=== PATIENT | male | born 1940 | race Caucasian/White ===

== ENCOUNTER 2021-10-19 10:13 | Observation (INO) ==
--- NOTE | 2021-10-16 08:30 | Anesthesiology Consultation ---
Date of Service October 16, 2021 Assessment & Plan (1) Encounter for pre-operative examination: - check BSG am DOS. - medical clearance 07/28/2021: "...preoperative clearance prior to R knee replacement...recent labs, EKG and CXR that was reviewed and the findings indicated only mild bradycardia...denies anginal CP with daily activity...low to mod risk for the procedure--recommend monitoring HR/blood glucose in the perioperative period..." - cardiology office visit 12/24/2020: "...BP acceptable, pulse low...denies CP...no SOB or MISTRY...02/2019 ECHO- EF 60-65%, AoR 3.8 cm...mild AR/TR/MR, PAP 21, DD1...01/2019 CT chest- ascending thoracic aorta 4 cm. 01/2019 Carotids- <50% bilat ICA stenosis, vertebral flow antegrade bilat...coronary artery disease-hx NSTEMI s/p CABG x 2 ([facility], [facility]) with improved CP over the past year, cont ASA, Plavix, statin, BB. Thoracic aortic aneurysm-4 cm...with mild AR, will monitor with annual echos. Bradycardia-asymptomatic, on BB, with occasional PVCs, monitor. Hypertension-appears controlled, cont current...carotid artery disease-< 50% bilat ICA stenosis, stable, monitor. Aortic regurgitation-mild, monitor. Mitral regurgitation-mild, monitor..." - Patient now booked for overnight observation. - COVID screening: Per commissioning specialist on 10/15/2021: Travel screen negative, no known COVID-19 positive contacts or current COVID-19 related symptoms in past 2 weeks. Patient vaccinated. Pre-op COVID test 10/15/21 negative. Chart Review Chart Review: Acceptable Risk for Surgery and Patient NOT seen in Pre Admission Testing History Surgery Operation Date: 10/19/21 12:30 Proposed Procedures p Right Total Knee Arthroplasty - Leland Girard MD Surgery re-scheduled since 06/2021 anesthesia review. Height/Weight Height: 5 ft 9 in Weight: 77.111 kg Allergies Allergy/AdvReac Type Severity Reaction Status Date / Time hydrocodone AdvReac Mild VOMIT Verified 10/15/21 15:17 Medications Home Medications Medication Instructions Recorded Confirmed Last Taken aspirin 81 mg tablet,delayed 81 mg PO QAM 07/02/21 10/15/21 Unknown release atorvastatin 80 mg tablet 80 mg PO HS 07/02/21 10/15/21 Unknown calcium 600 mg capsule 600 mg PO QAM 07/02/21 10/15/21 Unknown clopidogrel 75 mg tablet (Plavix) 75 mg PO QAM 07/02/21 10/15/21 Unknown gabapentin 300 mg capsule 300 mg PO HS 07/02/21 10/15/21 Unknown metoprolol succinate 50 mg 25 mg PO QAM 07/02/21 10/15/21 Unknown tablet,extended release 24 hr [id number]-vpy-nnlde acid 300 1 tab PO QAM 07/02/21 10/15/21 Unknown mcg-lycopene 600 mcg-lutein 300 mcg tablet (Centrum Silver Men) omeprazole 20 mg tablet,delayed 20 mg PO QAM 07/02/21 10/15/21 Unknown release amino acids (Amino Acid) 3 cap PO BID 10/15/21 10/15/21 Unknown Past Medical History Medical History (Updated 10/16/21 @ 09:03 by Miri Rowland PA-C) Aortic valve stenosis listed per remote records, no aortic valve stenosis diagnosis listed in cardio note 11/2020 or [facility] report 02/2019, aortic valve is noted to be thickened with mild regurgitation Bradycardia asymptomatic, on BB, monitoring per cardio CAD (coronary artery disease) NSTEMI and CABG x 2 in 2019 ([facility], [facility]), follows with Dr Brock Carotid artery disease < 50% stenosis bilat ICA, monitored by cardio GERD (gastroesophageal reflux disease) Hx of sciatica Hyperlipidemia Hypertension Inguinal hernia RT Myocardial Infarction post-op, 2019 Osteoarthritis Peripheral neuropathy tingling feet bilat Prediabetes Right knee DJD Thoracic aortic aneurysm 4 cm on [address], monitoring with annual echos per 11/2020 cardio note Past Family History Family History Other No family history of adverse response to anesthesia Past Surgical History Surgical History History of appendectomy History of cardiac cath 2019/NO STENTS History of cataract surgery RT/LEFT History of cholecystectomy History of colonoscopy History of coronary artery bypass graft X 2 VESSELS 2019 ([facility]) History of esophagogastroduodenoscopy (EGD) History of tooth extraction Social History Smoking Status: Former smoker tobacco type: cigarettes Do You Dip or Chew Tobacco: No Smoking End Date: 1978 Hx Alcohol Use: Yes Alcohol type: beer alcohol intake frequency: holidays/special occasions only substance use type: does not use Review of Systems Patient reports occasional neck pain in recent weeks, alleviated with using his 's neck collar. Denies trauma, upper extremity paresthesias or weakness. Lab Results Anesthesia Preop Results Results Anesthesia Widget: WBC 6.70 K/uL (4.8-10.8) 10/01/21 Hgb 15.0 g/dL (14.0-18.0) 10/01/21 Hct 44.3 % (42-52) 10/01/21 Plt 175 K/uL (130-400) 10/01/21 Na 140 mmol/L (136-145) 10/01/21 K 4.2 mmol/L (3.5-5.1) 10/01/21 Cl 108 mmol/L (98-107) H 10/01/21 CO2 26 mmol/L (21-32) 10/01/21 BUN 16 mg/dl (6-23) 10/01/21 Creat 1.05 mg/dl (0.6-1.4) 10/01/21 Glucose Level 89 mg/dl (70-99(Fasting)) 10/01/21 PT 11.5 Seconds (9.0-12.0) 10/01/21 INR 1.1 (0.9-1.1) 10/01/21 Blood Type AB Negative 10/01/21 Antibody Screen NEGATIVE 10/01/21 Testing Electrocardiogram Date: 07/06/21 Sinus bradycardia, rate 49 bpm. Chest X-Ray Date: 07/06/21 FINDINGS: The cardiac silhouette is upper limits of normal in size. Prior median sternotomy. The lungs are hyperinflated. There is no pneumothorax, pleural effusion, airspace consolidation or overt pulmonary edema. Cholecystectomy. Degenerative changes of the shoulders and spine. IMPRESSION: No acute process. Echocardiogram Date: 02/27/19 Technically difficult study EF 60-65% Borderline dilated RV Thickened aortic valve with mild regurgitation Mild tricuspid regurgitation Mildly enlarged right atrium Borderline aortic root dilation Grade I diastolic dysfunction Cardiac Catheterization Date: 02/19/19 Left main: normal LAD: heavily calcified, proximal 90% stenotic Cx: heavily calcified, proximal to mid 99% subtotal occlusion RCA: heavily calcified with mid eccentric 50-60% stenosis at the takeoff of the acute marginal branch which has ostial 90% stenosis Recommendations: Medical therapy and aggressive risk factor modification. Cardiac surgery evaluation for CABG.Pt subsequently underwent CABGx 2 in 2019 at [facility].
--- NOTE | 2021-10-16 14:15 | History and Physical Report ---
DATE OF ADMISSION: 10/19/2021 CHIEF COMPLAINT: Right knee pain and discomfort. HISTORY OF PRESENT ILLNESS: The patient is a 81-year-old very active gentleman who presents for surg ical treatment of his right knee. He has got a long history of gradually progressive increasing righ t knee pain and discomfort that has become more bothersome over time. He has been treated extensivel y with conservative care by Dr. Willie kenny in [place]. Steroid shots have become less successful over time. The gel shot also has become less successful. He is an avid john and having trouble doing this due to his knee pain. His knee feels unstable. It gives out on him intermittently. The more h e walks, the more it hurts and the more he limps. He would like to have his knee fixed. PAST MEDICAL HISTORY: Significant for, 1. Coronary artery disease, status post cardiac stent placement 2 years ago, on Plavix. 2. Hypertension. 3. Gastroesophageal reflux disease. PAST SURGICAL HISTORY: Includes, 1. Cholecystectomy. 2. Cardiac stent placement. 3. Carpal tunnel release. 4. Cataract surgery. ALLERGIES: None. CURRENT MEDICATIONS: Include, 1. Aspirin. 2. Atorvastatin. 3. Plavix. 4. Gabapentin. 5. Metoprolol. 6. Multivitamin. 7. Omeprazole. 8. Tylenol. SOCIAL HISTORY: A 81-year-old male. He is from [place]. He is . Rare alcohol intake. Augustine s not smoke. FAMILY HISTORY: Noncontributory. REVIEW OF SYSTEMS: Significant for this cardiac stent placement and on Plavix. Denies any current c hest pain or shortness of breath. No history of DVT or PE. No known bleeding problems. PHYSICAL EXAMINATION: GENERAL: Shows a pleasant, healthy middle-aged male. Looks to be younger than his stated age. HEENT: Benign. NECK: Supple. No lymphadenopathy. LUNGS: Clear to auscultation. HEART: Has a regular rate and rhythm. ABDOMEN: Soft, nontender, nondistended. EXTREMITIES: Grossly neurovascularly intact except as follows: Examination of the right knee reveal s the patient walks with a slight bit of a limp. He has got valgus alignment to his knee, which is i ncreased with weightbearing. Range of motion about 10 degrees short of full extension to 120 degrees of flexion. There is no instability. No pain with hip motion. X-RAYS: X-rays of the right knee are reviewed. It shows advanced right knee lateral compartment DJD . He has got complete loss of his lateral joint space. He has got subchondral sclerosis. ASSESSMENT: A 81-year-old active gentleman and john with advanced right knee degenerative joint di sease. He has failed conservative treatment. He had been scheduled in the past, but we canceled it due to COVID epidemic. He would now like to proceed with surgery. PLAN: We will take him to the operating room and do a right knee replacement. The risks and benefit s of this procedure were explained to the patient and include but not limited to DVT, PE, , infe ction, neurological injury, vascular injury, bleeding problem, pain, limited range of motion, stiffne ss, failure to relieve his symptoms, incomplete relief of symptoms, etc. The patient understands and desires to proceed. Informed consent was obtained. He will need to hold his Plavix 7 days preop. Take the omeprazole and the metoprolol on the morning of surgery. He is planning on being discharged to home using [facility] program. Job ID: [id number]
[~2021-10-19 10:13] MED LIST: ACETAMINOPHEN 500 MG TAB PO SCH; BUPIVACAINE 0.5 % 5 MG/1 ML PF 10ML VIAL ONE; BUPIVACAINE LIPOSOME/PF 266 MG, BUPIVACAINE/EPINEPHRINE 50 ML, SODIUM CHLORIDE 0.9% 30 ... INFIL SCH; FAMOTIDINE 20 MG TAB PO SCH; GABAPENTIN 300 MG CAP PO SCH; LR 500ML BOLUS, THEN 15ML/HR IV SCH; LR 60ML/HR IV SCH; METOCLOPRAMIDE HCL 10 MG TABLET PO SCH; TRANEXAMIC ACID 1,000 MG **IV Intra-op IV SCH; ceFAZolin 2000MG 2,000 MG/15 ML SYR IV SCH
--- NOTE | 2021-10-19 11:25 | History & Physical Bridge Note ---
Date of Service October 19, 2021 History & Physical Bridge Note I have examined the patient, reviewed the History & Physical and in the interval since the performance of the History & Physical I have noted the following changes of clinical significance: no changes noted
[2021-10-19] MEDS ORDERED: MIDAZOLAM HCL 1 MG/ML 2ML VIAL ONE (12:14)
[2021-10-19] MEDS ORDERED: PROPOFOL IV EMULSION 10 MG/ML 20 ML VIAL IV ONE ×4 (12:14→14:11)
[2021-10-19] MEDS ORDERED: BUPIVACAINE/EPINEPHRINE 0.25% 1:200,000 30 ML VIAL ONE (13:57)
[2021-10-19] MEDS ORDERED: BUPIVACAINE LIPOSOME 1.3% 266 MG/20 ML VIAL ONE (13:57)
[2021-10-19] MEDS ORDERED: SODIUM CHLORIDE 0.9% PF 50 ML VIAL ONE (13:57)
[2021-10-19] MEDS ORDERED: LIDOCAINE 2% 2 ML VIAL/AMP(20MG/ML) INFIL ONE (14:12)
[2021-10-19] MEDS ORDERED: ePHEDrine sulfate 50 MG/ML SYR ONE (14:40)
[2021-10-19] MEDS ORDERED: PHENYLEPHRINE 100MCG/ML 5ML SYR ONE (14:40)
--- NOTE | 2021-10-19 16:30 | Post Operative Brief Note ---
PG Immediate Post Op with CF Date of Surgery October 19, 2021 Pre & Post Diagnosis Operation Date: 10/19/21 12:30 Pre-Op Diagnosis: Right knee osteoarthritis. Post-Op Diagnosis: Right knee osteoarthritis. I identified the patient and participated in the time-out.: Yes Procedure Operation Date: 10/19/21 12:30 Actual Procedures p Right Total Knee Arthroplasty(Right) - Leland Girard MD Surgeon Leland Girard MD Signal Supervisor Doc Omalley PA-C Estimated Blood Loss 50 Findings Consistent with Post-Op Diagnosis Specimens Specimen Description: A. Right knee bone and tissue. Drains Norris Catheter Anesthesia Type Spinal MAC Complications none Disposition Accompanied Patient To Recovery: No
--- NOTE | 2021-10-19 16:52 | Anesthesiology Progress Note ---
Date of Service October 19, 2021 Anesthesia Post Procedure Vital Signs Vital Signs: Temp Pulse Pulse Resp BP Pulse Ox 10/19/21 16:50 83 23 121/71 99 10/19/21 16:40 81 23 121/77 99 10/19/21 16:30 81 18 111/69 96 10/19/21 16:22 96.8 F L 87 12 100/67 99 10/19/21 10:56 97.9 F 50 L 18 118/68 96 Transfer of Care Handoff Completed per policy Notes Mental Status: alert / awake / arousable and participated in evaluation Patient Amnestic to Procedure: Yes Nausea / Vomiting: adequately controlled Pain: adequately controlled Airway Patency, RR, SpO2: stable & adequate BP & HR: stable & adequate Hydration State: stable & adequate Neuraxial Anesthesia: was administered and sensory block is resolving Anesthetic Complications: no major complications apparent and Pt Satisfied with anesthetic care
--- NOTE | 2021-10-19 17:02 | XRay Report ---
XR knee RT 1 or 2V routine CLINICAL HISTORY: Postoperative evaluation. COMPARISON: Knee radiographs July 06, 2021. FINDINGS: Alignment of the total right knee arthroplasty is anatomic. There is no periprosthetic fra cture or unexpected radiopaque foreign body. There are skin aimee. IMPRESSION: Expected findings following total right knee arthroplasty. ACT 112: Negative or not required by law. Electronically signed by: Francisco J Bridges M.D. 10/19/2021 5:00 PM
--- NOTE | 2021-10-19 18:05 | Operative Report ---
PG Post Operative Report Pre & Post Diagnosis Operation Date: 10/19/21 12:30 Pre-Op Diagnosis: Right knee osteoarthritis. Post-Op Diagnosis: Right knee osteoarthritis. I identified the patient and participated in the time-out.: Yes Procedure Operation Date: 10/19/21 12:30 Actual Procedures p Right Total Knee Arthroplasty(Right) - Leland Girard MD Surgeon Leland Girard MD Portfolio Director Doc Omalley PA-C Estimated Blood Loss 50 Findings Consistent with Post-Op Diagnosis Operative findings revealed advanced right knee DJD. Extensive grade 4 [id number] disease in all 3 compartments most severe in the lateral side. He had extensive deposits consistent with gout throughout his knee and throughout the ligaments. Specimens Right knee sent for pathology. Anesthesia Type Spinal MAC Complications none Disposition Accompanied Patient To Recovery: No Indications Patient is 81-year-old gentleman with a long history of right knee pain discomfort is gradually gotten worse over time. He failed all conservative measures. X-rays show advanced right knee DJD. He elected proceed with surgical treatment. Description of Procedure chichi implants consist of: 1 Biomet Vanguard size 67.5 right posterior stabilized femoral component. 2. Biomet size 79 tibial tray. 3. 10 mm posterior stabilized polyethylene insert. 4. 31 x 8 all polypatella. The patient was taken the operating, identified, placed on the operating table supine position. All contractors were properly padded. IV antibiotics arrived by anesthesia team. A spinal anesthetic and abductor canal block had provided holding area. Norris catheter was placed in sterile fashion. Right thigh turn was then placed in the right lower extremities and prepped and draped in usual sterile fashion. tThe right leg was elevated exsanguinated with use of an Esmarch and tourniquet placed at 300 mmHg. An anterior approach to the right knee was then performed to longitudinal incision centered over the patella. Sharp dissection was carried through subcutaneous this down the extensor mechanism. A medial parapatellar arthrotomy incision was made. The fat pad was resected from the patella tendon. The patella was subluxated laterally. The lateral patellofemoral ligament was released. The ACL and PCL were then released and the tibia subluxated anteriorly. The external tibial alignment jig was then placed in the interface the tibia and adjusted 12 mm medially. Proximal tibial cut was made to remove about 3 to 4 mm of bone from the medial side. The tibia sized to a size 79. Attention drawn the femur. The distal femur stem with a sharp drill. Intramedullary canal was suction. A right 5 degree valgus cutting guide was placed. This femoral cutting block was pinned in place. Distal femoral cut was made to take an additional 3 mm bone off distal femur. The femur was then sized to a size 67.5. The AP cutting block was pinned parallel to the epicondylar axis which was 4 degrees of external rotation. The anterior cut, anterior chamfer, posterior cut, posterior chamfer cuts were made. The box cutting guide was placed in just slight lateral box cut was made. The knee was flexed. The remnants of medial lateral menisci were excised. The osteophytes taken off the posterior aspect of the femur. Trial femoral component was placed. Of note I did release the IT band in order to equalize extension gap.The tibial tray was then pinned in maximum external rotation and the drill and stem punch used to create the defect in proximal tibia for the tibial tray. The knee was then trialed and 10 mm insert fit most appropriately. Attention drawn the patella. The patella was cleaned of all soft tissues. Patella thickness measured 23 mm thickness cut down to 14. It was sized to a size 31 patella. The lug holes were drilled for the 31 patella. The lateral osteophyte is moved. Patella button was placed. Knee was taken through range of motion and the patella tracked nicely with no thumbs test. Attention drawn toward placing the permanent components. All trial components were removed. Bone plug was placed in the distal femur limit blood loss. Double batch Palacos G cement was mixed. Biomet Vanguard size 67.5 right posterior stabilized femoral component, size 79 tibial tray, 10 mm posterior stabilized polyethylene insert, and a 31 x 8 all polypatella were t hen cemented in place. Knee was brought out into full extension until cement hardened. Final cement check was then performed. The pericapsular tissues were injected with total 100 cc of combination of 20 cc of Exparel, 30 cc normal saline, 50 cc of quarter percent Marcaine with epinephrine. Patient did receive 1 g tranexamic acid. The tourniquet was let down for total tourniquet time of 67 minutes. Hemostasis assured use electrocautery. The extensor mechanism Repaired with a combination of #1 PDS suture #1 Vicryl suture in [id number] fashion. The extensor mechanism checked found to be intact the subcutaneous tissue then closed with 2 Dexon suture in a buried knot fashion skin was closed skin aimee. Leg was then cleaned and dried and sterile dressed with Xeroform, 4 fours, sterile cast padding, Charles bandage were applied. Patient transferred to the recovery room in stable condition. Patient tolerated procedure well and there were no complications. Doc Lamar, my physician licensed physical therapy assistant, was present for the entire procedure. His assistance was required for proper patient positioning, prepping and draping, surgical exposure, retraction, placement of the implants, closure of the wound, placement of sterile bandage. I attest to the content of the Intraoperative Record and any orders documented therein. Any exceptions are noted below.
[2021-10-19] MEDS ORDERED: HYDROmorphone INJ 0.5 MG/0.5 ML SYR IV PRN (18:15)
[2021-10-19] MEDS ORDERED: MAGNESIUM HYDROXIDE SUSP 30 ML UDC PO PRN (18:15)
[2021-10-19] MEDS ORDERED: NALOXONE HCL 0.4 MG/1 ML VIAL/CARP IV PRN (18:15)
[2021-10-19] MEDS ORDERED: METOCLOPRAMIDE HCL INJ 5 MG/ML 2 ML VIAL IV PRN (18:15)
[2021-10-19] MEDS ORDERED: bisacodyL 10 MG SUPP PR PRN (18:15)
[2021-10-19] MEDS ORDERED: ALUMINUM/MAGNESIUM SUSP 30 ML UDC PO PRN (18:15)
[2021-10-19] MEDS ORDERED: ONDANSETRON INJ 2 MG/ML 2 ML VIAL IV PRN (18:15)
[2021-10-19] MEDS ORDERED: oxyCODONE HCL IR 5 MG TAB (IMMEDIATE RELEASE) PO PRN (18:15)
[2021-10-19] MEDS ORDERED: ONDANSETRON 4 MG OD TAB PO PRN (18:37)
[2021-10-19] MEDS: SODIUM CHLORIDE 0.9% 1000ML 1,000 ML IV SCH (18:42)
[2021-10-19] MEDS: KETOROLAC TROMETHAMINE 15 MG/ML VIAL IV SCH (19:36)
[2021-10-19] MEDS: ASCORBIC ACID 500 MG TAB PO SCH (19:36)
[2021-10-19] MEDS ORDERED: NON-FORMULARY MEDICATION (Amino Acids [Amino Acid] Capsule) PO SCH (21:00)
[2021-10-19] MEDS ORDERED: ATORVASTATIN 40 MG TAB PO SCH (21:00)
[2021-10-19] MEDS ORDERED: SENNA 8.6 MG TAB PO SCH (21:00)
[2021-10-19] MEDS ORDERED: GABAPENTIN 300 MG CAP PO SCH (21:00)
[2021-10-19] MEDS: ceFAZolin 1000MG 1,000 MG/7.5 ML SYR IV SCH (21:57)
[2021-10-19] MEDS: TAPENTADOL HCL ER 50 MG TABCR PO SCH (21:57)
[2021-10-19] MEDS: DOCUSATE SODIUM 100 MG CAP PO SCH (21:58)
[2021-10-19] MEDS: ACETAMINOPHEN 500 MG TAB PO SCH (21:58)
[2021-10-19] MEDS ORDERED: TRANEXAMIC ACID / 0.7% NACL 1,000 MG/100 ML BAG IV SCH (22:30)
[2021-10-20] MEDS: KETOROLAC TROMETHAMINE 15 MG/ML VIAL IV SCH ×3 (00:13→13:17)
[2021-10-20] MEDS: SODIUM CHLORIDE 0.9% 1000ML 1,000 ML IV SCH (05:01)
[2021-10-20] MEDS: ACETAMINOPHEN 500 MG TAB PO SCH ×2 (05:25→13:18)
[2021-10-20] MEDS: ceFAZolin 1000MG 1,000 MG/7.5 ML SYR IV SCH (05:25)
[2021-10-20 07:03] LABS: Hematocrit (blood only) 34.6 % (42-52); Hemoglobin 11.8 g/dL (14.0-18.0); Mean Corpuscular Hemoglobin 32.6 pg (25-34); Mean Corpuscular Hgb Conc 34.1 g/dL (32-36); Mean Corpuscular Volume 95.6 fL (80-100); Mean Platelet Volume 11.2 fL (7.4-10.4); Platelet Count 142 K/uL (130-400); RDW Coefficient of Variation 13.4 % (11.5-14.5); RDW Standard Deviation 46.8 fL (36.4-46.3); Red Blood Count 3.62 M/uL (4.7-6.1); White Blood Count 9.41 K/uL (4.8-10.8)
[2021-10-20 07:14] LABS: BUN Creatinine Ratio 19.5 (10-20); Calcium 8.2 mg/dl (8.5-10.1); Creatinine Clr Calc Pharmacy 68.8 ml/min; Est GFR (African American) 95.1 ml/min; Est GFR (Non-African American) 82.1 ml/min; Potassium 3.8 mmol/L (3.5-5.1)
[2021-10-20] MEDS ORDERED: dexAMETHasone 10 MG in SYRINGE 0 ML IV SCH (08:00)
[2021-10-20] MEDS: DOCUSATE SODIUM 100 MG CAP PO SCH (08:31)
[2021-10-20] MEDS: ASCORBIC ACID 500 MG TAB PO SCH (08:31)
[2021-10-20] MEDS: TAPENTADOL HCL ER 50 MG TABCR PO SCH (08:40)
[2021-10-20] MEDS ORDERED: PANTOprazole 40 MG TAB PO SCH (09:00)
[2021-10-20] MEDS ORDERED: CEROVITE ADV FORMULA TAB PO SCH (09:00)
[2021-10-20] MEDS ORDERED: METOPROLOL SUCC 25MG EXT REL TAB PO SCH (09:00)
[2021-10-20] MEDS ORDERED: TAMSULOSIN HCL 0.4 MG CAP PO SCH (09:00)
[2021-10-20] MEDS ORDERED: MULTIVITAMIN TAB PO SCH (09:00)
[2021-10-20] MEDS ORDERED: ASPIRIN 81 MG ECTAB PO SCH (09:00)
[2021-10-20] MEDS ORDERED: DOCUSATE SODIUM/SENNA 50/8.6MG TAB PO SCH (09:00)
[2021-10-20] MEDS ORDERED: CALCIUM CARBONATE 1250MG TAB PO SCH (09:00)
[2021-10-20 15:11] VITALS: BP 123/74; PULSE 55; TEMP 97.7; O2SAT 99
[2021-10-20] MEDS ORDERED: CLOPIDOGREL BISULFATE 75 MG TAB PO SCH (17:00)
--- NOTE | 2021-10-20 22:17 | Progress Notes ---
DATE OF SERVICE: 10/20/2021. SUBJECTIVE: A 81-year-old gentleman postoperative day 1 from right knee replacement. He is really d oing pretty well. Pain is controlled. Therapy went well. Anxious to get home. OBJECTIVE: VITAL SIGNS: Temperature 36.5. Vital signs stable. PHYSICAL EXAMINATION: GENERAL: Shows a pleasant middle-aged male. He is walking around his room quite well with a walker. LUNGS: Clear to auscultation. HEART: Has regular rate and rhythm. ABDOMEN: Soft, nontender, nondistended. EXTREMITIES: Grossly neurovascularly intact except as follows: Examination of the right leg reveals the dressing to be clean, dry and intact. He can dorsiflex and plantarflex his foot appropriately. He can do a good straight leg raise. LABORATORY DATA: Hemoglobin 11.8. Hematocrit 34.6. Electrolytes are stable. ASSESSMENT: A 81-year-old gentleman, postoperative day 1 from right knee replacement, doing pretty w ell. Pain is controlled. He is neurologically intact. He passed therapy. PLAN: 1. DVT prophylaxis includes thigh-high TEDs, SCDs, and he is back on his Plavix starting today. He will also take a baby aspirin once a day. 2. PT, OT, weightbear as tolerated. Right total knee protocol. 3. Pain control, doing well with current pain regimen. He did ask me about taking Toradol at home, but with him being on aspirin and Plavix, it is contraindicated. 4. Disposition: Plan to discharge to home with some home health later today. Job ID: [id number]
--- NOTE | 2021-10-21 08:33 | Discharge Summary ---
Date of Service October 21, 2021 Admission HPI (Per Admitting) DICTATED BY:Leland Girard MD DATE OF ADMISSION: 10/19/2021 CHIEF COMPLAINT: Right knee pain and discomfort. HISTORY OF PRESENT ILLNESS: The patient is a 81-year-old very active gentleman who presents for surgical treatment of his right knee. He has got a long history of gradually progressive increasing right knee pain and discomfort that has become more bothersome over time. He has been treated extensively with c onservative care by Dr. Willie kenny in [place]. Steroid shots have become less successful over time. The gel shot also has become less successful. He is an avid john and having trouble doing this due to his knee pain. His knee feels unstable. It gives out on him intermittently. The more he walks, the more it hurts and the more he limps. He would like to have his knee fixed. PAST MEDICAL HISTORY: Significant for, 1. Coronary artery disease, status post cardiac stent placement 2 years ago, on Plavix. 2. Hypertension. 3. Gastroesophageal reflux disease. PAST SURGICAL HISTORY: Includes, 1. Cholecystectomy. 2. Cardiac stent placement. 3. Carpal tunnel release. 4. Cataract surgery. ALLERGIES: None. CURRENT MEDICATIONS: Include, 1. Aspirin. 2. Atorvastatin. 3. Plavix. 4. Gabapentin. 5. Metoprolol. 6. Multivitamin. 7. Omeprazole. 8. Tylenol. SOCIAL HISTORY: A 81-year-old male. He is from [place]. He is . Rare alcohol intake. Does not smoke. FAMILY HISTORY: Noncontributory. REVIEW OF SYSTEMS: Significant for this cardiac stent placement and on Plavix. Denies any current chest pain or shortness of breath. No history of DVT or PE. No known bleeding problems. PHYSICAL EXAMINATION: GENERAL: Shows a pleasant, healthy middle-aged male. Looks to be younger than his stated age. HEENT: Benign. NECK: Supple. No lymphadenopathy. LUNGS: Clear to auscultation. HEART: Has a regular rate and rhythm. ABDOMEN: Soft, nontender, nondistended. EXTREMITIES: Grossly neurovascularly intact except as follows: Examination of the right knee reveals the patient walks with a slight bit of a limp. He has got valgus alignment to his knee, which is increased with weightbearing. Range of motion about 10 degrees short of full extension to 120 degrees of flexion. There is no instability. No pain with hip motion. X-RAYS: X-rays of the right knee are reviewed. It shows advanced right knee lateral compartment DJD. He has got complete loss of his lateral joint space. He has got subchondral sclerosis. ASSESSMENT: A 81-year-old active gentleman and john with advanced right knee degenerative joint disease. He has failed conservative treatment. He had been scheduled in the past, but we canceled it due to COVID epidemic. He would now like to proceed with surgery. PLAN: We will take him to the operating room and do a right knee replacement. The risks and benefits of this procedure were explained to the patient and include but not limited to DVT, PE, , infection, neurological injury, vascular injury, bleeding problem, pain, limited range of motion, stiffness, failure to relieve his symptoms, incomplete relief of symptoms, etc. The patient understands and desires to proceed. Informed consent was obtained. He will need to hold his Plavix 7 days preop. Take the omeprazole and the metoprolol on the morning of surgery. He is planning on being discharged to home using [facility] program. Admission Exam (Per Admitting) PHYSICAL EXAMINATION: GENERAL: Shows a pleasant, healthy middle-aged male. Looks to be younger than his stated age. HEENT: Benign. NECK: Supple. No lymphadenopathy. LUNGS: Clear to auscultation. HEART: Has a regular rate and rhythm. ABDOMEN: Soft, nontender, nondistended. EXTREMITIES: Grossly neurovascularly intact except as follows: Examination of the right knee reveals the patient walks with a slight bit of a limp. He has got valgus alignment to his knee, which is increased with weightbearing. Range of motion about 10 degrees short of full extension to 120 degrees of flexion. There is no instability. No pain with hip motion. Principal Diagnosis Same as "Discharge Diagnosis" noted below under Discharge Instructions. Discharge Data Procedures Performed Operation Date: 10/19/21 12:30 Actual Procedures p Right Total Knee Arthroplasty(Right) - Leland Girard MD Ordered Studies 10/19/21 05:00 US - OR guided needle placemen Routine Hospital Course (1) Status post total right knee replacement: Admitted post operatively following right total knee replacement. No major post operative complications. Did well with PT evaluation and was discharged home with home health on POD 1. PG Care Time/CCT Total # of Minutes Spent Total Time Spent with Patient: Total time spent is greater than 50% in coordination of care (as documented) at patient's floor/unit and/or counseling patient: Discharge Plan Discharge Items Patient Disposition: Home - Home Health Services Reason For Visit: Right Knee Osteoarthritis Discharge Diagnosis: Right Knee Replacement Activity: Per Instructions section Non-emergency contact: Primary Care Provider Call non-emergency contact if: you have any medication questions Follow-up/Referrals: Arpan Kaye DO [Primary Care Provider] - Diet: Regular Addtl Attending Provider Instructions: ACTIVITY RECOMMENDATIONS: Physical Therapy: * You will go to physical therapy three times each week for four to six weeks after your surgery in order to regain your knee range of motion and to retrain your knee to work properly. * It is just as important to make sure you are getting your knee perfectly straight as it is to regain your knee bend. * Taking a pain pill an hour before therapy can help you have a more productive and comfortable therapy session. Home Exercise: * You were shown a series of exercises (heel props, heel slides, etc.) in the hospital. Do these exercises three to four times each day including the exercises you were shown in physical therapy. Walking: * Get up and walk several times each day. For the first four weeks, try not to stand or walk for more than one hour at a time. If you do stand or walk for more than one hour, you will not hurt anything, but your knee and leg will likely swell. * As you feel comfortable, you may change from the walker or crutches to a cane and then to independent walking. MEDICATIONS: New Medicine: * You will likely be taking one or more of these medications: 1. Oxycodone - A quick and shorter-acting pain medication. Take one to two tablets every six hours to lessen your pain. 2. Aspirin and Plavix - Thins your blood to lessen the chance of forming a blood clot. * The most common side effects of pain medicine and iron are nausea and constipation. If nausea or constipation is too much of a problem or if you have any questions about your new medicines or doses, call [facility] at [phone]. We will try to help you manage these issues. "VERY IMPORTANT TO READ AND REVIEW" Pain: * The immediate post-operative period after knee replacement surgery is often quite painful. * You are given a prescription for pain medicine. You should take it, as directed, when you need it, especially before physical therapy and before going to bed. Pain that interferes with sleep is very common and can last several months. * You will likely need pain medicine for the first four to six weeks. It will not stop all of the pain. The pain will lessen and as you feel better, you may change to milder pain medicine such as Tylenol. * The most common side effects of pain medicine are nausea and constipation, so don't take more than you need. SPECIAL CARE INSTRUCTIONS: TEDs/Elastic Stockings: * The white elastic stockings help limit swelling and prevent blood clots from forming in your legs. The more you wear them, the more they work. * Wear them for six weeks after knee replacement surgery and four weeks after partial knee replacement. Incision Site Care: * Remove dressing postoperative day 2 and then shower. Keep direct shower pressure off the incision site. * After showering, cover aimee with dry gauze and change daily or more frequently if the dressing is getting saturated with drainage. * Use the ALLI stockings to hold dressing in place. DO NOT apply tape on the skin. * May completely stop using bandage if wound is dry and no drainage * Aimee are removed between 2 and 3 weeks post-op. If your follow-up appointment is made before 2 weeks, please have your appointment re- scheduled. It is too early to remove the aimee. Prevention of Infection: * Take antibiotics one hour before any dental cleaning, dental work, urological procedure, gastrointestinal procedure or any invasive surgery in order to prevent your new joint from getting infected. * You may get the antibiotics from the doctor performing the procedure or you may call our office at [phone] before and we will call in a prescription to the pharmacy of your choice. Things to Watch For: * Drainage from the incision site that occurs more than one week after your surgery. * Severely increased knee/leg pain or swelling. * Increased redness at the incision site. * Fever above 102 degrees Fahrenheit. * Unusual chest pain or shortness of breath. * Unusual pain or burning with urination. Call [facility] at [phone] with any of the above problems or if you have any questions about your medicines or recovery. FOLLOW UP VISIT: Make an appointment to see your doctor for approximately two weeks after surgery for a progress check and staple removal by calling the office at [phone]. Pending Studies at Discharge: No Stand-Alone Forms: My [facility], Smoking Cessation Medications and DC Order Prescriptions: Continued acetaminophen 500 mg capsule 1,000 mg PO TID 30 Days Qty: 180 RF: 0 ondansetron HCl 4 mg tablet 4 mg PO Q6 PRN (Reason: nausea) Qty: 30 RF: 0 sennosides-docusate sodium [Senokot-S] 8.6-50 mg tablet 1 tab-cap PO DAILY Qty: 14 RF: 0 tamsulosin [Flomax] 0.4 mg capsule 0.4 mg PO DAILY Qty: 7 RF: 2 oxycodone 5 mg tablet 5 - 10 mg PO Q8H PRN (Reason: pain) Qty: 40 RF: 0 atorvastatin 80 mg Tablet 80 mg PO HS RF: 0 metoprolol succinate 50 mg Tablet Extended Release 24 Hr 25 mg PO QAM RF: 0 clopidogrel [Plavix] 75 mg Tablet 75 mg PO QAM RF: 0 aspirin 81 mg Tablet,Delayed Release (Dr/Ec) 81 mg PO QAM RF: 0 gabapentin 300 mg Capsule 300 mg PO HS RF: 0 calcium 600 mg Capsule 600 mg PO QAM RF: 0 omeprazole 20 mg Tablet,Delayed Release (Dr/Ec) 20 mg PO QAM RF: 0 Centrum Silver Men 300-600-300 mcg Tablet 1 tab PO QAM RF: 0 Amino Acid Capsule 3 cap PO BID RF: 0 Discharge Orders: Discharge Order (Routine); Ordered 10/20/21 Ordered By: Leland Bustillos/Other Patient Handouts: Treating Constipation Admission Data Admit Date/Time: 10/19/21 16:28 Attending Provider: Leland Girard Admit Provider: Leland Girard Primary Care Provider: Arpan Kaye Other Providers: Replaced By [facility] Other Interventions: Discharge Summary Assessment (RN) Last Done: 10/20/21 15:09
== END 2021-10-20 17:15 | disposition home health service (06) ==
LOC: 3E 10:13 → ASU 10:13